=== PATIENT | male | born 1960 | race Hispanic/Latino ===

== ENCOUNTER 2018-06-16 06:57 | Day surgery (SDC) | payer BC ==
[~2018-06-16 06:57] MED LIST: ANCEF/STERILE WATER 2 GM/20 ML 2 GM/20 ML SYRINGE IV NR
[2018-06-16] MEDS ORDERED: DILAUDID IV PRN (07:06)
[2018-06-16] MEDS ORDERED: ZOFRAN IV PRN (07:06)
--- NOTE | 2018-06-16 07:40 | Anesthesia Day of Surgery ---
Anesthesia Day of Surgery - Day of Surgery Patient Examined: Yes Patient H&P Reviewed: Yes Patient is NPO: Yes
--- NOTE | 2018-06-16 07:41 | Anesthesia Consultation ---
Anesthesia Consult and Med Hx Date of service: 06/16/18 - Airway Anesthetic Teeth Evaluation: Good ROM Head & Neck: Adequate Mental/Hyoid Distance: Adequate Mallampati Class: Class I Intubation Access Assessment: Good - Pulmonary Exam CTA: Yes - Cardiac Exam Cardiac Exam: RRR - Pre-Operative Health Status ASA Pre-Surgery Classification: ASA2 Proposed Anesthetic Plan: General (Rare GERD, GA with LMA) - Pulmonary Hx Smoking: No Hx Sleep Apnea: No (ROSALINA PRE SCREEN LOW RISK) - Cardiovascular System Hx Hypertension: No - Other Systems Hx Cancer: No
[2018-06-16] MEDS ORDERED: VERSED IV NR (08:00)
[2018-06-16] MEDS ORDERED: LACTATED RINGERS 1,000 ML IV SCH (08:00)
[2018-06-16] MEDS ORDERED: ANCEF/STERILE WATER 2 GM/20 ML IV NR (08:00)
[2018-06-16] MEDS ORDERED: SUBLIMAZE ONE (09:20)
[2018-06-16] MEDS ORDERED: DIPRIVAN 10 MG/ML IV ONE (09:20)
[2018-06-16] MEDS ORDERED: DECADRON ONE (09:52)
[2018-06-16] MEDS ORDERED: XYLOCAINE MPF 2% ONE (09:52)
[2018-06-16] MEDS ORDERED: ROBINUL ONE (09:52)
[2018-06-16] MEDS ORDERED: ZOFRAN ONE (09:52)
[2018-06-16] MEDS ORDERED: LACTATED RINGERS 1,000 ML ONE (09:59)
[2018-06-16] MEDS ORDERED: LASIX ONE (09:59)
[2018-06-16] MEDS ORDERED: WATER FOR IRRIG STERILE IR ONE (10:00)
--- NOTE | 2018-06-16 10:11 | Post Operative Note ---
Date of procedure: 06/16/18 Pre-op diagnosis: bladder lesions Post-op diagnosis: same Findings: lesions Procedure: cysto biopsies rpgs Anesthesia: GETA Surgeon: DANTE CORRALES Estimated blood loss: minimal Pathology: list (bladder) Specimen disposition: to lab Condition: stable Disposition: PACU
--- NOTE | 2018-06-16 10:13 | Discharge Summary ---
Short Stay Discharge Plan Activity: other (no straining ) Weight Bearing Status: Full Weight Bearing Diet: regular Special Instructions: other (inc fluids ) Durable Medical Equipment Needed Upon Discharge: other ([facility] ) Follow up with: KARINA TODD MD [Primary Care Provider] - 7 Days DANTE CORRALES MD [Staff Physician] - 7 Days
--- NOTE | 2018-06-16 10:31 | Post Anesthesia Evaluation ---
- Post Anesthesia Evaluation Patient Participated: Yes Airway Patent: Yes Stable Respiratory Function: Yes Nausea/Vomiting: No Temp > 96.8F: Yes Pain Manageable: Yes Adequeate Hydration: Yes Anesthesia Complications: No
--- NOTE | 2018-06-16 10:38 | Fluoroscopy Report ---
FLUOROSCOPY RETROGRADE UROGRAPHY: HISTORY: Gross hematuria. FINDINGS: Fluoroscopy was provided by radiology during retrograde urography by the urologist. 6 fluoroscopic images were captured. There is adequate filling of the ureters and intrarenal collecting systems with no filling defects or anatomic abnormalities identified. Bladder biopsies were also performed per the operative note Please correlate with the procedural report if needed. IMPRESSION: Retrograde pyelograms within normal limits.
--- NOTE | 2018-06-16 11:43 | Operative Report ---
PREOPERATIVE DIAGNOSES: Positive cytology, bladder lesions, rule out carcinoma in situ. POSTOPERATIVE DIAGNOSES: Positive cytology, bladder lesions, rule out carcinoma in situ. PROCEDURE: Cystoscopy, excision of multiple lesions, fulguration, bladder and prostatic urethral biopsies and retrograde. SURGEON: Carlitos Mejia MD ANESTHESIA: General. FINDINGS: The patient is a gentleman who presented with hematuria. He did not come back for a few months as he was very busy at work, came back with gross hematuria, now presents for cystoscopy. All risks and implications discussed. DESCRIPTION OF PROCEDURE: The patient brought to the operating room and placed on the operating table. Following induction of anesthesia, placed in lithotomy position, prepped and draped in usual sterile fashion. Cystourethroscopy showed these erythematous lesion, mostly at the posterior wall towards the dome, leaning more to the right side and the right lateral wall. These were biopsied, deep biopsies. We were able to see muscle and the prostatic urethra was biopsied as well. Retrograde showed good filling, good drainage on the fluoroscopy without persistent filling defect. The patient tolerated the procedure well. All the areas were cauterized. The left side of the bladder looked normal. There were no large papillary lesions. The patient tolerated the procedure well. A 22 coude was placed, brought to recovery in stable condition. JOB# [id number] TAMARA/RAYSHAWN
[2018-06-16 15:12] VITALS: BP 121/76
== END 2018-06-16 12:42 | disposition home or self-care (01) ==
LOC: OR 06:57
PROVIDERS: ATTEND Urology
DX: N30.20 Other chronic cystitis without hematuria (principal); N32.89 Other specified disorders of bladder; R31.0 Gross hematuria; E78.00 Pure hypercholesterolemia, unspecified; K21.9 Gastro-esophageal reflux disease without esophagitis; Z90.49 Acquired absence of other specified parts of digestive tract; Z98.890 Other specified postprocedural states; Z79.899 Other long term (current) drug therapy
CPT/HCPCS: 52005; 52204; 74420; 88112; 88305; A4217; J0690; J1100; J1940; J2250; J2405; J2704; J3010; J7120; Q9967

== ENCOUNTER 2018-10-20 07:08 | Day surgery (SDC) | payer BC ==
[2018-10-20] MEDS ORDERED: LACTATED RINGERS 1,000 ML IV SCH (08:00)
[2018-10-20] MEDS ORDERED: ANCEF/STERILE WATER 2 GM/20 ML IV NR (08:24)
--- NOTE | 2018-10-20 09:29 | Anesthesia Day of Surgery ---
Anesthesia Day of Surgery - Day of Surgery Patient Examined: Yes Patient H&P Reviewed: Yes Patient is NPO: Yes Beta Blockers: No Iraj's Test: N/A
--- NOTE | 2018-10-20 09:29 | Anesthesia Day of Surgery ---
Anesthesia Day of Surgery - Day of Surgery Patient Examined: Yes Patient H&P Reviewed: Yes Patient is NPO: Yes Beta Blockers: No Iraj's Test: N/A
--- NOTE | 2018-10-20 09:33 | Anesthesia Consultation ---
Anesthesia Consult and Med Hx Date of service: 10/20/18 - Airway Anesthetic Teeth Evaluation: Good ROM Head & Neck: Adequate Mental/Hyoid Distance: Adequate Mallampati Class: Class I Intubation Access Assessment: Good - Pulmonary Exam CTA: Yes - Cardiac Exam Cardiac Exam: RRR - Pre-Operative Health Status ASA Pre-Surgery Classification: ASA3 Proposed Anesthetic Plan: General - Pulmonary Hx Smoking: No Hx Sleep Apnea: No (ROSALINA PRE SCREEN LOW RISK) - Cardiovascular System Hx Hypertension: No - Additional Comments Anesthesia Medical History Comments: ASA3 57 yom with bladder cancer scheduled for TURBT. Otherwise healthy with good functional status (avid runner). classification of 3 due to presence of cancer only. Plan GETA
[2018-10-20] MEDS ORDERED: XYLOCAINE MPF 2% ONE (09:36)
[2018-10-20] MEDS ORDERED: DIPRIVAN 10 MG/ML IV ONE (09:36)
[2018-10-20] MEDS ORDERED: SUBLIMAZE ONE (09:36)
[2018-10-20] MEDS ORDERED: NACL 0.9% IR ONE (10:15)
[2018-10-20] MEDS ORDERED: ROBINUL ONE (10:22)
[2018-10-20] MEDS ORDERED: ZOFRAN ONE (10:23)
--- NOTE | 2018-10-20 10:37 | Operative Report ---
PREOPERATIVE DIAGNOSIS: History of carcinoma in situ bladder cancer. POSTOPERATIVE DIAGNOSES: History of carcinoma in situ bladder cancer. PROCEDURE: Cystoscopy, multiple random bladder biopsies, retrograde. SURGEON: Carlitos Mejia MD ANESTHESIA: General. FINDINGS: This is a gentleman with a history of carcinoma in situ and he now presents for followup biopsy, cystoscopy. DESCRIPTION OF PROCEDURE: The patient brought to the operating room and placed on the operating table. Following induction of anesthesia, placed in lithotomy position, prepped and draped in usual sterile fashion. Urethra was normal. Prostatic urethra was normal. Bladder neck was opened. There was clear efflux from each orifice. Some of the old scarred areas were noted and there was no erythema around it. No significant erythema. Multiple bladder biopsies were done and the bladder on the whole looked markedly improved. There were no lesions, may be slight erythema in the posterior wall. This was not near any of the previous sites. Biopsies were done including the prostatic urethra. The patient tolerated the procedure well. Billings catheter was left. Family was notified. No significant bleeding, brought to recovery in stable condition. JOB# [id number] TAMARA/RAYSHAWN
[2018-10-20] MEDS ORDERED: NORCO 5/325 PO PRN (10:49)
[2018-10-20] MEDS ORDERED: NORCO 5/325 ONE (10:50)
[2018-10-20 12:08] VITALS: BP 102/72
--- NOTE | 2018-10-20 12:17 | Discharge Summary ---
Short Stay Discharge Plan Activity: other (no straining ) Weight Bearing Status: Full Weight Bearing Diet: regular Special Instructions: other (inc fluids ) Durable Medical Equipment Needed Upon Discharge: other ([facility] ) Follow up with: KARINA TODD MD [Primary Care Provider] - 7 Days DANTE CORRALES MD [Staff Physician] - 3 Days Forms: [facility]
--- NOTE | 2018-10-20 12:17 | Post Operative Note ---
Date of procedure: 10/20/18 Pre-op diagnosis: bladder cancer Post-op diagnosis: same (bladder cancer) Findings: normal Procedure: cysto biopsies rpgs Anesthesia: GETA Surgeon: DANTE CORRALES Estimated blood loss: minimal Pathology: list (bladder) Specimen disposition: to lab Condition: stable Disposition: PACU
--- NOTE | 2018-10-21 07:42 | Fluoroscopy Report ---
FLUOROSCOPY RETROGRADE UROGRAPHY: HISTORY: Bladder cancer. FINDINGS: Fluoroscopy was provided by radiology during retrograde urography by the urologist. 9 fluoroscopic images were captured. There is adequate filling of the ureters and intrarenal collecting systems with no filling defects or anatomic abnormalities identified. Please correlate with the procedural report if needed. IMPRESSION: Retrograde pyelograms within normal limits.
== END 2018-10-20 07:09 | disposition home or self-care (01) ==
LOC: OR 07:08
PROVIDERS: ATTEND Urology
DX: D09.0 Carcinoma in situ of bladder (principal); E78.00 Pure hypercholesterolemia, unspecified; K21.9 Gastro-esophageal reflux disease without esophagitis; Z79.899 Other long term (current) drug therapy; Z98.890 Other specified postprocedural states; Z86.2 Personal history of diseases of the blood and blood-forming organs and certain disorders involving the immune mechanism
CPT/HCPCS: 52204; 74420; 88112; 88305; A4217; C1758; J0690; J2405; J2704; J3010; J7120; Q9967